=== PATIENT | female | born 1960 | race Caucasian/White ===

== ENCOUNTER → 2018-06-29 | Outpatient (CLI) | payer OTHER ==
[~2018-06-29] MED LIST: CARVEDILOL12.5 MG PO; CRESTOR20 MG PO; GLIPIZIDE ER5 MG PO; GLUMETZA1000 PO; JANUVIA100 MG PO; LISINOPRIL2.5 MG PO; MECLIZINE HCL12.5 MG PO; PLAVIX 75 MG TA75 M1 PO; TIROSINT150 MCG PO
--- NOTE | ~2018-06-29 | SLE ---
[facility] [place] [address] POLYSOMNOGRAPHY STUDY Name: AUTUMN HOSKINS Room #: REG [facility] [place]#: [id number] Admission: 06/29/18 Attend Phys: Kwaku Jackson MD Discharge: Date of : 64 Report #: [id number] THIS REPORT FOR: //name// CC: Kwaku Miranda MD DATE OF SERVICE: 06/30/2018 SLEEP STUDY ATTENDING PHYSICIAN: Dr. Orlin Miranda. The patient is 58 years old who weighs 213 pounds and is 65 inches tall with a BMI of 35.4. The patient had a home sleep study and was found to have severe [place] at an AHI of 45 per hour. The patient returned for in-lab CPAP titration study. During the night study, the patient spent 395 minutes in bed and slept for 340 minutes with a sleep efficiency of 86%. Sleep latency was 40 minutes, which was prolonged with a REM latency of 58 minutes, which was short. Overall, sleep architecture showed increased stage 1 sleep, normal stage 2 sleep, absent slow wave and increased REM sleep, which was 29% of total sleep time. EKG monitoring revealed an average heart rate of 75 beats per minute with a maximum 89 beats per minute. Normal sinus rhythm was observed and PVCs were seen throughout, but no sustained arrhythmias seen. PLMS were seen at an index of 19 per hour and 5 per hour caused EEG arousals. The patient was started on CPAP at a pressure of 7 cm water and titrated up to 17 cm water. At the final pressure, the patient slept for 70 minutes. The patient had 27 minutes of REM sleep. The patient had no supine sleep at the final pressure. The patient's AHI was reduced to 0 per hour and oxygen saturation remained above 92%. IMPRESSION: 1. Severe sleep apnea-hypopnea syndrome diagnosed by previous home sleep study. 2. Mild to moderate periodic limb movements during sleep. 3. Abnormal EKG with premature ventricular contractions seen during the study. RECOMMENDATIONS: 1. CPAP at 17 cm water should be used on a nightly basis. It completely eliminated the patient's sleep apnea. 2. Follow up in 4-6 weeks to assess compliance with CPAP and to document [facility] [address] [place] [address] POLYSOMNOGRAPHY STUDY Name: AUTUMN HOSKINS Room #: REG [facility].#: [id number] Admission: 06/29/18 Attend Phys: Kwaku Jackson MD Discharge: Date of : 64 Report #: [id number] clinical improvement. 3. Weight loss is strongly advised. 4. Avoid [employer] depressants. 5. Cautioned regarding driving until symptoms of sleep apnea resolve with the use of CPAP. 6. Follow up with Cardiology regarding abnormal EKG if clinically indicated. 7. The patient should also be further evaluated for symptoms of restless legs during the day. <ELECTRONICALLY SIGNED> By: Kwaku Jackson MD 07/01/182013 1844 10 Kwaku Jackson MD /desmond
== END ==
LOC: SLEEPLAB 16:17
DX: G47.30 Sleep apnea, unspecified (principal); R94.31 Abnormal electrocardiogram [ECG] [EKG]; G47.61 Periodic limb movement disorder

== ENCOUNTER 2018-11-12 12:30 | Emergency (ER) | payer OTHER ==
[~2018-11-12] VITALS: Ht 165.1 cm; Wt 94.3 kg
[2018-11-12 12:57] LABS: HEMOGLOBIN 13.2 gm/dL (12.0-15.0); MCV 90.9 fL (80.0-100.0); PLATELET COUNT 279 thou/uL (150-400); RDW 15.5 % (10.5-14.5); WBC 6.2 thou/uL (4.0-11.0)
[2018-11-12 13:06] LABS: BE(vivo) -1.3 mmol/L (-2 to +3); HCO3 22.4 mmol/L (22.0-26.0); PCO2 34.6 mmHg (35.0-45.0); PO2 68.6 mmHg (80.0-100.0); sO2 94.4 % (92.0-98.0)
[2018-11-12 13:29] LABS: ABSOLUTE NEUTROPHILS 3.2 thou/uL (1.4-8.2); ATYPICAL LYMPHS 1 %
[2018-11-12 13:31] LABS: ANISOCYTOSIS SLIGHT; LARGE PLATELETS OCCASIONAL; OVALOCYTES OCCASIONAL; POIKILOCYTOSIS SLIGHT
[2018-11-12 13:41] LABS: ANION GAP 13 mmol/L (7-16); BUN 32 mg/dL (7-18); CALCIUM 8.8 mg/dL (8.5-10.1); CHLORIDE 100 mmol/L (98-107); CO2 26 mmol/L (21-32); CREATININE 2.3 mg/dL (0.6-1.0); GLUCOSE 87 mg/dL (74-106); POTASSIUM 3.6 mmol/L (3.5-5.1); SODIUM 139 mmol/L (136-145)
[2018-11-12 13:44] LABS: ALBUMIN 3.2 g/dL (3.4-5.0); SGOT 10 U/L (15-37); SGPT 12 U/L (30-65); TOTAL BILIRUBIN 0.5 mg/dL (<0.1-1.0); TOTAL PROTEIN 7.1 g/dL (6.4-8.2); TROPONIN-I <0.06 ng/mL (<0.06)
[2018-11-12 15:34] LABS: URINE BLOOD NEGATIVE (Negative); URINE CLARITY CLEAR; URINE COLOR YELLOW; URINE GLUCOSE-RANDOM* NEGATIVE (Negative); URINE KETONES TRACE (Negative); URINE NITRITE-REFLEX NEGATIVE (Negative); URINE PROTEIN (DIPSTICK) 1+ (Negative); URINE SPECIFIC GRAVITY >= 1.030 (1.005-1.035)
[2018-11-12 15:37] LABS: URINE LEUKOCYTES-REFLEX 1+ (Negative)
[2018-11-12 15:38] LABS: ICTOTEST (BILI CONFIRMATORY) Negative (Negative); URINE BILIRUBIN NEGATIVE (Negative)
[2018-11-12 15:42] LABS: SQUAMOUS >10 Many /LPF (0-3); URINE RBC None Seen /HPF (0-2); URINE WBC-REFLEX 6-15 Few /HPF (0-5)
[2018-11-12 15:43] LABS: CRYSTALS None Seen /LPF (None Seen)
[2018-11-12 16:21] VITALS: BP 100/55
--- NOTE | 2018-11-12 17:15 | EKG ---
[address] [address] ELECTROCARDIOGRAM REPORT Name: AUTUMN HOSKINS [id number] ������������������ Admission: 11/12/18 ������������������ Attend Phys: Discharge: 11/12/18 ������������������ Date of : 64 Report #: [id number] ����������������������������������������������������������������� [id number] THIS REPORT FOR: //name// 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: MAT : 1960 Requested By: Adan Mcbride Order Number: [id number] MD: Pedro Luis Trinidad Measurements Intervals [place] Rate: 76 P: 49 CO: 173 QRS: 28 QRSD: 114 T: 42 QT: 422 QTc: 475 Interpretive Statements Sinus rhythm Borderline intraventricular conduction delay Compared to ECG 03/24/2013 17:12:31 No significant change was found Electronically Signed On 11-12-2018 17:15:04 CDT by Pedro Luis Trinidad [email or web address] ��������������������������������������������� <ELECTRONICALLY SIGNED> ���������������������������������������� By: Pedro Luis Trinidad MD, [facility] ��������������������������������������������� 11/12/18 1715 1254 125 Pedro Luis Trinidad MD, FACC /EPI
== END 2018-11-12 16:30 | disposition home or self-care (01) ==
LOC: ER 12:30
PROVIDERS: Physician Assistant
DX: N17.9 Acute kidney failure, unspecified (principal); E86.0 Dehydration; I95.9 Hypotension, unspecified; Z79.899 Other long term (current) drug therapy

== ENCOUNTER 2020-08-11 09:15 | Observation (INO) | payer OTHER ==
[~2020-08-11] VITALS: Ht 165.1 cm; Wt 98.9 kg
--- NOTE | ~2020-08-11 | HC ---
[facility] [place] [address] CONSULTATION Name: AUTUMN HOSKINS Room #: 170-6 ADM IN M.R.#: [id number] Admission: 08/11/20 Attend Phys: Janae Nagy MD Discharge: Date of : 64 Report #: [id number] THIS REPORT FOR: cc: Rodney Green,Stas Mckay MD ~ DATE OF SERVICE: 08/11/2020 HISTORY OF PRESENT ILLNESS: This is a 60-year-old female patient who had visual disturbances with headache in the occipital area about 3 days ago. She did not seek medical attention. She came in today, symptom has not changed. I had initially talked to the Emergency Room physician and subsequently came and saw this patient. The patient has not had any stroke before. She does have some heart issues, but has not seen a study abroad advisor in the past. She is on Plavix, but does not look like the patient had any documented atrial fibrillations in the past. A CT scan of the head was done, which showed a large left occipital infarction in the posterior cerebral artery territory. REVIEW OF SYSTEMS: A 14-point review of system was carried out. She is a diabetic. She is hypertensive. She has some blood clot on the right leg. She said she has amputation there. These blood clots happened 25 years ago. Her creatinine is not good, but even prior creatinine was not very good either. This was relevant 14-point review of systems. She is also a diabetic. PAST MEDICAL HISTORY: Negative for stroke. FAMILY HISTORY: Negative for any early age stroke. SOCIAL HISTORY: She is a smoker. She drinks alcohol only on special occasions. PHYSICAL EXAMINATION: Indicate she is alert. She is responsive. She can follow simple and complex command. Her speech, concentration, fund of knowledge and memory is unremarkable. Cranial nerve examination demonstrated pretty dense hemianopsia on the right side. Rest of it is unremarkable. She has a right amputation, but neuromuscular examination on rest of the three extremities was unremarkable. There is no cerebellar sign. I could not look at the patient's fundus. She is reasonably well-built individual. Her hearing and vision looks adequate. Cardiac examination is unremarkable. No respiratory difficulty was noticed. Blood pressure is running low, in fact is running about 97/42. She is getting some normal saline. IMPRESSION: Left occipital cerebrovascular accident causing dense right hemianopsia. This patient needs extensive workup to rule out any embolization from the heart. This is because posterior cerebral artery infarcts are [facility] [address] [place] [address] CONSULTATION Name: AUTUMN HOSKINS Room #: 170-6 ADM IN ..#: [id number] Admission: 08/11/20 Attend Phys: Janae Nagy MD Discharge: Date of : 64 Report #: [id number] frequently because of cardioembolization. RECOMMENDATIONS: 1. Initial plan was to get a CT angiogram of the head and neck. That could not be done because the patient's BUN and creatinine are high. Therefore, I sent her for stat MRI, but the patient said she is too claustrophobic and she cannot do it under general anesthesia. That has to be set up if necessary. I am not completely satisfied that this is necessary, although it is desirable. I am going to get a carotid Doppler and echocardiogram done. If we see any obvious signs of embolization like ejection fraction is low and the patient shows some atrial fibrillation, then we may not do even the MRI. If not, then I guess we have to give her anesthesia. My also concern is that the patient's blood pressure is low, I am going to talk to the admitting doctor in a minute that I would like blood pressure to be somewhat high. They have already given her some normal saline and if possible, I would like her to have more saline assuming she is not going to have any congestive heart failure. All of it was discussed with the patient in detail and the patient was discussed with the family doctor and we will follow this patient along with you. By: 1151 1208 Stas Haywood MD /nt
[2020-08-11 09:28] VITALS: BP 108/57
[2020-08-11 09:43] LABS: URINE BLOOD NEGATIVE (Negative); URINE CLARITY SL CLOUDY; URINE COLOR YELLOW; URINE GLUCOSE-RANDOM* NEGATIVE (Negative); URINE KETONES NEGATIVE (Negative); URINE LEUKOCYTES-REFLEX TRACE (Negative); URINE NITRITE-REFLEX NEGATIVE (Negative); URINE PROTEIN (DIPSTICK) 1+ (Negative); URINE SPECIFIC GRAVITY >= 1.030 (1.005-1.035)
[2020-08-11 09:46] LABS: ICTOTEST (BILI CONFIRMATORY) Negative (Negative); URINE BILIRUBIN NEGATIVE (Negative)
[2020-08-11] MEDS ORDERED: GLIPIZIDE 10 MG10 MG PO (09:54)
[2020-08-11] MEDS ORDERED: LANTUS SUBQ (09:56)
[2020-08-11 09:58] LABS: CRYSTALS None Seen /LPF (None Seen); HYALINE CASTS 0-3 Few /LPF (None Seen); SQUAMOUS 4-10 Moderate /LPF (0-3)
[2020-08-11] MEDS ORDERED: LISINOPRIL20 MG PO (09:58)
[2020-08-11] MEDS ORDERED: ACTOS 30 MG TAB30 M1 PO (09:58)
[2020-08-11] MEDS ORDERED: LEVO-T100 MCG PO (09:58)
[2020-08-11 09:59] LABS: MUCUS 4-6 Moderate strn/LPF (None Seen)
[2020-08-11] MEDS ORDERED: CHANTIX1 MG PO (09:59)
[2020-08-11] MEDS ORDERED: CRESTOR40 MG PO (09:59)
[2020-08-11 10:01] LABS: BACTERIA-REFLEX 1-9 Few /HPF (None Seen); URINE RBC None Seen /HPF (0-2); URINE WBC-REFLEX 0-5 Rare /HPF (0-5)
[2020-08-11 10:04] LABS: HEMATOCRIT 39.5 % (37.0-47.0); HEMOGLOBIN 13.3 gm/dL (12.0-15.0); MCH 32.1 pg (26.0-34.0); MCHC 33.6 g/dL (28.0-37.0); MCV 95.4 fL (80.0-100.0); RBC 4.15 mil/uL (4.20-5.00); RDW 15.1 % (10.5-14.5); WBC 6.6 thou/uL (4.0-11.0)
[2020-08-11 10:16] LABS: ANION GAP 13 mmol/L (7-16); BUN 15 mg/dL (7-18); CALCIUM 9.3 mg/dL (8.5-10.1); CHLORIDE 104 mmol/L (98-107); CO2 23 mmol/L (21-32); CREATININE 1.4 mg/dL (0.6-1.0); GLUCOSE 182 mg/dL (74-106); POTASSIUM 4.1 mmol/L (3.5-5.1); SODIUM 140 mmol/L (136-145)
[2020-08-11 10:18] LABS: APTT 23.2 Seconds (24.5-32.8); PROTIME 10.5 Seconds (9.3-11.4)
[2020-08-11 10:26] LABS: ALBUMIN 3.5 g/dL (3.4-5.0); SGOT 11 U/L (15-37); SGPT 17 U/L (14-59); TOTAL BILIRUBIN 0.4 mg/dL (0.2-1.0); TOTAL PROTEIN 7.1 g/dL (6.4-8.2); TROPONIN-I <0.06 ng/mL (<0.06)
[2020-08-11 11:08] LABS: FOLIC ACID 8.6 ng/mL (8.6-58.9)
--- NOTE | 2020-08-11 11:52 | EKG ---
[address] [place] [address] [facility] [place] [address] ELECTROCARDIOGRAM REPORT Name: AUTUMN HOSKINS Room #: 170-6 ADM IN M.R.#: [id number] Admission: 08/11/20 Attend Phys: Janae Nagy MD Discharge: Date of : 64 Report #: [id number] [facility] ED Test Date: 2020-08-11 Test Time: 09:54:54 Pat Name: AUTUMN HOSKINS Department: Room: 170 Gender: F Solution Maker: eagle louie : 1960 Requested By: Oleg Marrero Order Number: [id number] MD: Jonathan Oakley Measurements Intervals [place] Rate: 76 P: 41 IA: 187 QRS: 1 QRSD: 111 T: 36 QT: 399 QTc: 449 Interpretive Statements Sinus rhythm Ventricular premature complex Low voltage, extremity and precordial leads Baseline wander in lead(s) V1 Compared to ECG 11/12/2018 12:54:39 Ventricular premature complex(es) now present Low QRS voltage now present Electronically Signed On 08-11-2020 11:52:02 CONCRETE CURER by Jonathan Oakley [email or web address] <ELECTRONICALLY SIGNED> By: Jonathan Oakley MD, FAC 08/11/20 1152 [id number] [id number] Jonathan Oakley MD, [facility] /EPI
--- NOTE | 2020-08-11 13:48 | 2DMMODE ---
[facility] [place] [address] 2 D/M-MODE ECHOCARDIOGRAM Name: AUTUMN HOSKINS Room #: 170-6 ADM IN M.R.#: [id number] Admission: 08/11/20 Attend Phys: Janae Nagy MD Discharge: Date of : 64 Report #: [id number] THIS REPORT FOR: cc: Rodney Green,Pedro Luis Pendleton MD [facility] ~ ADDENDUM APPROVED REPORT Study performed: 08/11/2020 11:48:52 EXAM: Comprehensive 2D, Doppler, and color-flow Echocardiogram Patient Location: ER Status: routine BSA: 2.05 HR: 65 bpm BP: 108/57 mmHg Rhythm: NSR/PVCs Other Information Study Quality: Fair Technically limited study due to lung disease, obesity. Indications CVA. Hx: CAD, HTN, HLP, DM, tobacco abuse. Echo Enhancing Agent Indication: Rule out Shunt Agent(s) / Amount(s) Used: Agitated Saline 14 cc 2D Dimensions RVDd: 38.99 mm IVSd: 14.39 (7-11mm) LVOT Diam: 19.60 (18-24mm) LVDd: 53.76 mm PWd: 12.42 (7-11mm) LVDs: 45.16 (25-40mm) Aortic Root: 36.70 mm Volumes Left Atrial Volume (Systole) Single Plane 4CH: 40.57 mL Single Plane 2CH: 60.77 mL LA ESV Index: 29.00 mL/m2 [facility] [address] [address] [place] [address] 2 D/M-MODE ECHOCARDIOGRAM Name: AUTUMN HOSKNIS Room #: 170-6 ADM IN M.R.#: [id number] Admission: 08/11/20 Attend Phys: Sandy Quispe Discharge: Date of : 64 Report #: [id number] Aortic Valve AoV Peak Jesus.: 1.33 m/s AO Peak Gr.: 7.02 mmHg LVOT Max P.08 mmHg LVOT Max V: 0.88 m/s REJI Vmax: 2.00 cm2 Mitral Valve E/A Ratio: 0.7 MV Decel. Time: 188.04 ms MV E Max Jesus.: 0.66 m/s MV A Jeuss.: 0.99 m/s MV PHT: 54.53 ms IVRT: 100.35 ms Pulmonary Valve PV Peak Jesus.: 0.87 m/s PV Peak Gr.: 3.00 mmHg Tricuspid Valve TR Peak Jesus.: 2.41 m/s RAP Estimate: 5.00 mmHg TR Peak Gr.: 23.14 mmHg PA Pressure: 28.00 mmHg Left Ventricle The left ventricle is normal size. There is normal LV segmental wall motion. There is normal left ventricular wall thickness. The left ventricular systolic function is normal. The left ventricular ejection fraction is within the normal range. LVEF is 55-60%. Mild diastolic dysfunction Right Ventricle The right ventricle is normal size. The right ventricular systolic function is normal. Atria The left atrium size is normal. Suboptimal bubble study. 2 attempts, not recorded The right atrium size is normal. Aortic Valve The aortic valve is normal in structure. No aortic regurgitation is present. There is no aortic valvular stenosis. Mitral Valve The mitral valve is normal in structure. Mild mitral regurgitation. No evidence of mitral valve stenosis. [facility] [address] [address] [place] [address] 2 D/M-MODE ECHOCARDIOGRAM Name: AUTUMN HOSKINS Room #: 170-6 ADM IN M.R.#: [id number] Admission: 08/11/20 Attend Phys: Sandy Quispe Discharge: Date of : 64 Report #: [id number] Tricuspid Valve The tricuspid valve is normal in structure. Trace tricuspid regurgitation. Estimated PAP is 25-30mmHg. Pulmonic Valve Pulmonic valve is not well visualized. There is no pulmonic valvular regurgitation. Great Vessels IVC is normal in size and collapses >50% with inspiration. Pericardium There is no pericardial effusion. <Conclusion> Technically limited study The left ventricular systolic function is normal. There is normal LV segmental wall motion. LVEF is 55-60%. Mild diastolic dysfunction The aortic valve is normal in structure. No aortic regurgitation or stenosis. The mitral valve is normal in structure. Mild mitral regurgitation. Trace tricuspid regurgitation. Estimated pulmonary artery pressure of 25-30mmHg. There is no pericardial effusion. Bubble study was performed, not diagnostic due to limited nature of study. <ELECTRONICALLY SIGNED> By: Pedro Luis Trinidad MD, FACC 08/11/20 1348 1348 1348 Pedro Luis Trinidad MD, FACC /INF
[2020-08-11 19:28] VITALS: BP 106/49
--- NOTE | 2020-08-11 19:45 | NUR ---
TRIED TO CALL REPORT. NO ANSWER.
--- NOTE | 2020-08-11 19:54 | NUR ---
TW CHARGE, NURSE UNAVAILABLE TO GET REPORT.
[2020-08-11 20:44] VITALS: BP 108/61
[2020-08-12 00:09] VITALS: BP 105/61
[2020-08-12 02:06] LABS: GLYCOHEMOGLOBIN (HGB A1C) 7.5 % (4.8-5.6)
[2020-08-12 03:26] VITALS: BP 112/67
--- NOTE | 2020-08-12 04:28 | NUR ---
PT NEW ADMIT FROM ED YESTERDAY FOR STROKE LIKE SYMPTOMS. PT NIH OF 1 ON ARRIVAL, DENIES NAUSEA, CHEST DISCOMFORT OR SOB. REPORTS LEFT PERIPHERAL VISION LOSS, STATES SHE IS REGAINING FULL VISION SLOWLY. PT REPORTS TO BE EXTREMELY CLAUSTROPHOBIC AND WOULD NOT TOLERATE MRI, UNLESS SHE IS SEDATED. DENIES ANY PAIN. ASMISSION COMPLETE AND CONCENT FORMS SIGNED. PT ORIENTED X 4. 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 SR ON THE MONITOR. WILL CONTINUE TO MONITOR AND FOLLOW POC.
[2020-08-12 05:01] LABS: ABSOLUTE NEUTROPHILS 2.6 thou/uL (1.4-8.2); EOSINOPHILS 2.1 % (0.0-3.0); HEMATOCRIT 35.5 % (37.0-47.0); HEMOGLOBIN 11.8 gm/dL (12.0-15.0); LYMPHOCYTES 35.8 % (24.0-44.0); MCHC 33.2 g/dL (28.0-37.0); MCV 96.4 fL (80.0-100.0); MONOCYTES 11.9 % (1.0-8.0); PLATELET COUNT 231 thou/uL (150-400); POLYS 49.2 % (36.0-66.0); RBC 3.69 mil/uL (4.20-5.00); RDW 15.4 % (10.5-14.5); WBC 5.2 thou/uL (4.0-11.0)
[2020-08-12 05:17] LABS: BUN 13 mg/dL (7-18); CALCIUM 8.4 mg/dL (8.5-10.1); CHOLESTEROL 123 mg/dL (<200); CO2 22 mmol/L (21-32); CREATININE 1.2 mg/dL (0.6-1.0); GLUCOSE 202 mg/dL (74-106); HDL CHOLESTEROL 33 mg/dL (>40); LDL CHOLESTEROL 59 mg/dL (<100); MAGNESIUM 1.7 mg/dL (1.8-2.4); SERUM ASSESSMENT Clear; TC:HDL 3.7 Ratio (Not establshd); TRIGLYCERIDE 157 mg/dL (<150); VLDL 31 mg/dL (<40)
[2020-08-12 05:22] LABS: ANION GAP 11 mmol/L (7-16); CHLORIDE 107 mmol/L (98-107); POTASSIUM 3.6 mmol/L (3.5-5.1); SODIUM 140 mmol/L (136-145)
[2020-08-12 07:14] VITALS: BP 123/63
[2020-08-12 11:18] VITALS: BP 132/70
[2020-08-12] MEDS ORDERED: ADULT LOW DOSE81 MG PO (13:10)
[2020-08-12 15:47] VITALS: BP 132/70
--- NOTE | 2020-08-12 16:52 | NUR ---
Pt admitted with new lg subacute occipital infarct. Main symptom was major change in vision/blurred. Pt evaluated by neruo/PT/OT/ST and rehab medicine as well as cardiology. Pt anxious to dc home today and has a ride per family member. She indicated to staff she is indep with gait and adl's and drives. 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 She has a 25yr hx of rt AKA and uses a prothesis independently. Her pcp is Dr. Green. She is going home with a holter montior and plans to f/u with cardilogy. Neuro recommended non contrast CT in 5-7 days. Orders faxed to scheduling and message left for Norma's office as they may need to provide additional info to the order for insurance approval ([employer]). Pt provided the number to scheduling to arrange an appt time. She will also need to f/u with her pcp. No dc planning interventions indicated. Pt cleared by therapy to dc home. No dme indicated. She does have a rwalker at home if needed.
--- NOTE | 2020-08-12 17:00 | NUR ---
CARDIOLOGY ROUNDED AND PT WAS GIVEN HOLTER MONITOR. CASE MANAGEMENT SET UP OUTPT CT WITH PCP AND REGISTRATION.
== END 2020-08-12 17:25 | disposition home or self-care (01) ==
LOC: ER 09:15 → EROBS 11:21 → 2N 11:21
PROVIDERS: Emergency Medicine; Nurse Practitioner; ADMIT Hospitalist; ATTEND Hospitalist
DX: I63.89 Other cerebral infarction (principal); N17.9 Acute kidney failure, unspecified; H53.47 Heteronymous bilateral field defects; A52.71 Late syphilitic oculopathy; E78.5 Hyperlipidemia, unspecified; E03.9 Hypothyroidism, unspecified; I95.9 Hypotension, unspecified; E86.0 Dehydration; E11.22 Type 2 diabetes mellitus with diabetic chronic kidney disease; I12.9 Hypertensive chronic kidney disease with stage 1 through stage 4 chronic kidney disease, or unspecified chronic kidney disease; N18.9 Chronic kidney disease, unspecified; E66.9 Obesity, unspecified; I13.0 Hypertensive heart and chronic kidney disease with heart failure and stage 1 through stage 4 chronic kidney disease, or unspecified chronic kidney disease; I50.9 Heart failure, unspecified; Z86.718 Personal history of other venous thrombosis and embolism; Z87.891 Personal history of nicotine dependence; Z86.73 Personal history of transient ischemic attack (TIA), and cerebral infarction without residual deficits; Z89.612 Acquired absence of left leg above knee; Z89.611 Acquired absence of right leg above knee
CPT/HCPCS: 10081

== ENCOUNTER → 2020-08-19 | Outpatient (CLI) | payer OTHER ==
[~2020-08-19] MED LIST changes: +ACTOS 30 MG TAB30 M1 PO; +ADULT LOW DOSE81 MG PO; +CHANTIX1 MG PO; +CRESTOR40 MG PO; +GLIPIZIDE 10 MG10 MG PO; +LANTUS SUBQ; +LEVO-T100 MCG PO; +LISINOPRIL20 MG PO
== END ==
LOC: CAT 11:04
PROVIDERS: ATTEND Psychiatry & Neurology Neuromuscular Medicine
DX: I63.9 Cerebral infarction, unspecified (principal)